=== PATIENT | male | born 1985 | race Caucasian/White ===

== ENCOUNTER 2024-04-19 19:07 | Emergency (ER) | payer OTHER ==
[~2024-04-19] VITALS: Ht 188 cm; Wt 93.2 kg
[2024-04-19 19:22] VITALS: BP 122/77; PULSE 90; O2SAT 97
[2024-04-19] MEDS: LIDOcaine 1% 30ml preserv. free vial IJ ONE (20:04)
[2024-04-19] MEDS ORDERED: CEPH-585 PO (20:07)
[2024-04-19] MEDS: TETanus/Pertussis (Acell)/Diphther VAC/PF (Tdap-Adult) 0.5ml syringe IMVAC ONE (20:15)
[2024-04-19 20:33] VITALS: RESP 18; TEMP 97.9
== END 2024-04-19 20:18 | disposition home or self-care (01) ==
LOC: ER 19:08
DX: S69.81XA Other specified injuries of right wrist, hand and finger(s), initial encounter (principal); Z88.8 Allergy status to other drugs, medicaments and biological substances; Z79.2 Long term (current) use of antibiotics; X58.XXXA Exposure to other specified factors, initial encounter; Y93.89 Activity, other specified; Y92.89 Other specified places as the place of occurrence of the external cause; Y99.8 Other external cause status
CPT/HCPCS: 90471; 90715; 99284; A6449